=== PATIENT | female | born 1955 | race Caucasian/White ===

== ENCOUNTER 2019-06-05 18:48 | Emergency (ER) | payer OTHER ==
[2019-06-05] MEDS ORDERED: Morphine 4 MG/ML VIAL ONE (19:35)
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
--- NOTE | 2019-06-05 20:23 | RAD ---
RIGHT WRIST TWO VIEW: 06/05/19 HISTORY: Post reduction. COMPARISON: Radiograph same day. FINDINGS: There is improved alignment post reduction of the transversely oriented distal radius fracture. There is minimal impaction with dorsal displacement 3-4 mm. IMPRESSION: Improved alignment post reduction. POS: HOME
[2019-06-05] MEDS ORDERED: Triple Antibiotic Oint 1 GM Packet ONE (20:53)
== END 2019-06-05 21:18 | disposition home health service (06) ==
LOC: ERS 18:48
DX: S52.501A Unspecified fracture of the lower end of right radius, initial encounter for closed fracture (principal); V67.5XXA Driver of heavy transport vehicle injured in collision with fixed or stationary object in traffic accident, initial encounter
CPT/HCPCS: 25605; 96374; J2270

== ENCOUNTER 2019-06-09 12:18 | Day surgery (SDC) | payer OTHER ==
[~2019-06-09 12:18] MED LIST: Dexamethasone 20 MG/5 ML VIAL ONE; Ketorolac Tromethamine 30 MG/ML VIAL ONE; Lidocaine 1% PF 5 ML VIAL ONE; Metoclopramide HCl 10 MG/2 ML VIAL ONE; Ondansetron PF 4 MG/2 ML Vial ONE
[2019-06-09] MEDS ORDERED: Famotidine/PF 20 mg/2ml Vial ONE (13:30)
[2019-06-09] MEDS ORDERED: Fentanyl 100 MCG/2 ML VIAL ONE (13:30)
[2019-06-09] MEDS ORDERED: Midazolam HCl 2 mg/2 ml Vial ONE (13:31)
[2019-06-09] MEDS ORDERED: Propofol 500 MG/50 ML VIAL ONE (13:55)
[2019-06-09] MEDS ORDERED: PROPOFOL 40 ML ONE (13:55)
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
== END 2019-06-09 16:00 | disposition home or self-care (01) ==
LOC: SDC 12:18
PROVIDERS: ATTEND Orthopaedic Surgery
PROC: 0PSH04Z Reposition Right Radius with Internal Fixation Device, Open Approach (ICD-10-PCS; principal; 2019-06-09)
DX: S52.531A Colles' fracture of right radius, initial encounter for closed fracture (principal); Z88.0 Allergy status to penicillin; Z88.5 Allergy status to narcotic agent; Z91.040 Latex allergy status; V89.2XXA Person injured in unspecified motor-vehicle accident, traffic, initial encounter
CPT/HCPCS: 76000; C1713; J0690; J1100; J1885; J2001; J2250; J2405; J2704; J2765; J3010; S0028